=== PATIENT | female | born 1975 | race Hispanic/Latino ===

== ENCOUNTER 2016-11-15 05:56 | Day surgery (SDC) | payer SELFPAY ==
[~2016-11-15] VITALS: Ht 157.5 cm; Wt 72.1 kg
[2016-11-15] VITALS (10 sets, daily range): BP systolic 114–140; BP diastolic 73–90; PULSE 68–85; RESP 12–17; O2SAT 98–100
[~2016-11-15 05:56] MED LIST: DOCU-41 PO; Lactated Ringer's 1,000 ML IV SCH; POLY17PO6 PO; PREN-100 PO; SERT50TA9 PO
[2016-11-15] MEDS ORDERED: Ondansetron 2 mg/mL 2 mL Inj ONE (05:57)
[2016-11-15] MEDS ORDERED: Propofol 10,000 mCg/mL 20 mL Inj ONE (05:57)
[2016-11-15] MEDS ORDERED: Dexamethasone 4 mg/mL Inj ONE (05:57)
[2016-11-15] MEDS ORDERED: MetoCLOpramide 5 mg/mL 2 mL Inj ONE (05:57)
[2016-11-15] MEDS ORDERED: fentaNYL-PF 50 mCg/mL 2 mL Inj ONE ×2 (05:57→10:20)
[2016-11-15] MEDS ORDERED: CeFAZolin Inj 2 gm / 50mL D5W IV ONE ×2 (06:05→10:48)
[2016-11-15] MEDS ORDERED: Lactated Ringer's 1,000 ML IV ONE (07:00)
--- NOTE | 2016-11-15 07:54 | PCM.HPANE ---
Patient Data Surgeon Admitting Provider: Attending Provider:Momo Mcguire MD Primary Care Physician:Dex Rivas MD Other Provider:Eri Wallaceingham Anesthesia Reason for Visit Right Thyroid Mass Ht/WT & BMI Height (Feet): 5 Height (Inches): 2.00 Weight (Kilograms): 72.120 Body Mass Index 29.00 Allergies Coded Allergies: No Known Allergies (Verified , 09/29/15) Past Anesthesia History Anesthesia History: Denies:: Abnormal Airway, Anesthesia Reactions, Difficult Intubation Diabetes History Hx Diabetes?: No MRSA MRSA: No Medications Home Meds Incl Beta Laxmi: No Discontinued Reported Medications Sertraline HCl (Sertraline)50 Mg Klpxvn60 Mg PO DAILY 30 Days Ref 0 11/12/16 Vits #90/Iron Fum/FA ( Formula Tablet)1 Each Tablet1 Each PO DAILY 11/12/16 Polyethylene Glycol 3350 (Miralax)17 Gm Powd.pack17 Gm PO DAILY 11/12/16 Docusate Sodium (Colace)100 Mg Nvbfohj315 Mg PO BID PRN For Constipation Ref 0 11/12/16 Loratadine (Claritin)10 Mg Gvjhzsg52 Mg PO DAILY Ref 0 09/29/15 Vit W-Ca,Fe,FA(<1 mg) ( Vitamins)1 Each Tablet1 Each PO DAILY 09/29/15 Discontinued Scripts oxyCODONE-Acetaminophen 5-325 mg 1 Each Tablet1-2 Tab PO Q4H PRN For Pain #30 TABLET Prov:Wilfredo Dumas DO 09/29/15 Ibuprofen 600 Mg Tazrrl112 Mg PO Q6H PRN For Mild Pain #90 TABLET Prov:Wilfredo Dumas DO 09/29/15 Docusate Sodium (Colace)100 Mg Zxcddyi612 Mg PO DAILY PRN For Constipation #90 CAPSULE Prov:Wilfredo Dumas DO 09/29/15 History History of ENT Problems?: No HEENT History: Denies:: Abnormal Airway Cataracts Difficult Intubation Dysphagia Glaucoma Hearing Problem Sinus Problem TMJ Denture Type: None Teeth Condition: Within Normal Limits Hx of Heart Problems?: No Cardiovascular History: Denies:: AICD Abdominal Aortic Aneurism Atrial Fibrillation Cardiac Surgery Chest Pain Congestive Heart Failure Coronary Artery Disease Edema Heart Murmur Hypertension Irregular Heartbeat Pacemaker Peripheral Vascular Rheumatic Fever Thrombophlebitis Valvular Heart Disease Hx of Respiratory Problem?: No Respiratory History: Denies:: Asthma COPD Chest Surgery Cough Dyspnea Emphysema Hemoptysis Oxygen Administration Pneumonia Pulmonary Embolism Tuberculosis Use of C-PAP Machine Use of Inhalers / NEBS Hx Neurologic Problems?: No Neurological History: Denies:: Alzheimer's Disease CVA Dementia Dizziness Headaches Multiple Sclerosis Parkinson's Disease Peripheral Neuropathy Seizures TIA Hx of GI Problems?: No Gastrointestinal History: Denies:: Cirrhosis Diverticulitis Gall Bladder Disease Gastroesphageal Reflux Gastrointestinal Bleeding Heartburn Hepatitis Hiatal Hernia Liver Disease Rectal Bleeding Hx of Problems?: No Genitourinary History: Denies:: HX of Hemodialysis Kidney Stones Urinary Tract Infection Female Hx: Denies:: Currently (tubal) Endometriosis Pelvic Inflammatory Problems with Breasts? Skin History: Denies:: History Skin Disorders? Pressure Ulcers Hx Musculoskeletal Problems?: No Musculoskeletal History: Denies:: Back Injury Degenerative Joint Fibromyalgia Joint Replacement Musculoskeletal Trauma Myasthenia Gravis Osteoarthritis Rheumatoid Arthritis Systemic Lupus Hx of Psycho/Social Problems?: No Psycho Social History: Denies:: Anxiety Bipolar Disorder Hx Depression Suicide Attempt Hx Surgeries?: Yes (tubal) Hx Any Other Health Problems?: Yes Other History: Positive for:: Thyroid Disease (current admission problem, right thyroid mass) Denies:: Cancer Endocrine Disease Hospitalization History Blood Transfusions: Denies:: Accept Blood Products? Blood Transfuse Reaction Blood Transfusions Hx Diabetes: No Hx Alcohol Use: NoHx Substance Use: No Smoking Status: Never Smoker Have You Smoked inLast 12 mo: No Stop/Bang S-Snoring: Do You Snore Loudly: No T-Tired: feel tired, fatigued: Yes O-Obsered: Observed not breath: No P-Blood Pressure: treated: No B- Body Mass Index > 35 kg/m2: No A- Age over 50: No N- Neck Large Circumference: No G- Gender Male: No SATINDER Total Score: 1 Risk Assessment Category Category 1A: Patient has history of documented sleep apnea, and HAS NOT received any narcotic, sedative or anesthesia administration during this stay. Category 1B: Patient has history of documented sleep apnea, and HAS received any narcotic , sedative or anesthesia administration during this stay Category 2: Patient has SUSPECTED Obstructive Sleep Apnea, and HAS received any narcotic , sedative or anesthesia administration during this stay. Category 3: Patient has SUSPECTED Obstructive Sleep Apnea and HAS NOT received narcotic, sedative or anesthesia administration during this stay. Category 4: Outpatient in Procedural Areas with known sleep apnea or who screen positive for High Risk via the STOP/BANG questionnaire. Exam Exam Vital Signs Vital Signs Date Time Temp Pulse Resp B/P Pulse Ox O2 Delivery O2 Flow Rate FiO2 11/15/16 06:23 36.4 68 17 123/74 99 Room Air General Appearance: Alert, Oriented X3, Cooperative, No Acute Distress HEENT/AIRWAY: MP 1 Lungs: Clear to Auscultation Heart: Exam Unremarkable Meds/Labs/Diagnostics Admission Meds Current Medications Lactated Ringer's (Lr) 1,000 ml @ ud STK-MED ONCE IV Last administered on 11/15t 07:00; Start 11/15/16 at 07:00; Stop 11/15/16 at 07:01; Status DC Plan Impression Patient chart reviewed, patient interviewed and anesthestic plan with risks, benefits, and alternatives discussed, and informed consent obtained. ASA Physical Status: ASA1 Normal Healthy Anesthetic Plan: GA Bene/Risks/Altern/Consents: Yes HP Complete Prior to Induction: Yes Avelino Herrera MD Nov 15, 2016 07:54
[2016-11-15] MEDS ORDERED: Bupivacaine-MPF 0.25%/EPI 30 mL Inj INJ ONE (08:46)
[2016-11-15] MEDS ORDERED: Lactated Ringer's 500 ML IV PRN (10:31)
[2016-11-15] MEDS ORDERED: Lactated Ringer's 1,000 ML IV SCH (10:31)
--- NOTE | 2016-11-15 10:32 | PCM.ANEP1 ---
Post Anesthesia Phase 1 PACU Phase 1 Assessment Vital Signs Vital Signs Date Time Temp Pulse Resp B/P Pulse Ox O2 Delivery O2 Flow Rate FiO2 11/15/16 10:20 73 16 140/82 98 Room Air 11/15/16 10:15 74 15 135/86 100 Simple Mask 10 11/15/16 10:10 72 13 134/76 100 Simple Mask 10 11/15/16 10:05 36.9 75 15 114/90 100 Simple Mask 10 11/15/16 06:23 36.4 68 17 123/74 99 Room Air Anesthetic Administered: GA Level of Alertness: Sleepy, easy to arouse ESTRADA's with Equal Strength: Yes Pain: No Nausea or Vomiting: No Cardiovascular Function and Hy: Yes Oxygen Delivery: Room Air Lungs: Clear to Auscultation Complications: No Avelino Herrera MD Nov 15, 2016 10:32
[2016-11-15] MEDS ORDERED: fentaNYL-PF 50 mCg/mL 2 mL Inj IVPUSH PRN (10:35)
[2016-11-15] MEDS ORDERED: Phenylephrine 10,000 mCg/mL Inj IVPUSH PRN (10:35)
[2016-11-15] MEDS ORDERED: MetoCLOpramide 5 mg/mL 2 mL Inj IVPUSH PRN (10:35)
[2016-11-15] MEDS ORDERED: Ondansetron 2 mg/mL 2 mL Inj IVPUSH PRN (10:35)
[2016-11-15] MEDS ORDERED: HYDROmorphone 1 mg/mL Inj IVPUSH PRN (10:35)
[2016-11-15] MEDS ORDERED: Dexamethasone 4 mg/mL Inj IVPUSH PRN (10:35)
[2016-11-15] MEDS ORDERED: EPHEDrine Sulfate 50 mg/mL Inj IVPUSH PRN (10:35)
--- NOTE | 2016-11-15 11:00 | OP ---
[address] [address] OPERATIVE REPORT PATIENT: BOB MILLER : 1975 MR#: [id number] ADMIT: 11/15/2016 JOB ID: [id number] DATE OF SURGERY: 11/15/2016 ANESTHESIA: General. PREOPERATIVE DIAGNOSIS(ES): Symptomatic right thyroid nodule. POSTOPERATIVE DIAGNOSIS(ES): Symptomatic right thyroid nodule. OPERATIVE PROCEDURE: Right thyroid lobectomy. SURGEON: Momo Mcguire MD. SANDWICH ARTIST: Conrad Zhu MD (the digital assistant was required for the safe and timely completion of the case) and Reji Scanlon PA-C. COMPLICATIONS: None. ESTIMATED BLOOD LOSS: Less than 2 mL. CONDITION: Satisfactory. SPECIMEN: Right thyroid lobe. FINDINGS: There was an obvious firm nodule within the right thyroid lobe. Right thyroid lobectomy was performed. The right recurrent laryngeal nerve was identified and preserved. The right inferior and superior parathyroid glands were also identified and left in situ. INDICATION/SIGNIFICANT HISTORY: The patient is a 41-year-old female who noticed a right thyroid lump about six weeks ago. She believes it has been growing in size. She found it tender and uncomfortable, and believed it may be affecting her voice. An ultrasound was obtained which demonstrated a 2.8 x 2.4 x 3 cm inferior pole nodule. There were also a couple of subcentimeter nodules in the left thyroid. TSH was normal. She was referred to me. I recommended FNA. However, because it was symptomatic I also offered upfront right thyroid lobectomy. She elected to proceed with surgery. OPERATIVE TECHNIQUE: The patient was taken the operating room and placed in a supine position. General anesthesia was administered. The neck was prepped and draped in a standard surgical fashion. A procedure pause was performed. I began with a transverse cervical incision in the natural skin crease. Dissection was carried down through skin and subcutaneous tissue. A local anesthetic had been injected. Superior and inferior subplatysmal flaps were then raised. The right strap muscles were then sequentially elevated. The thyroid was dissected off the carotid sheath. I then turned my attention to the isthmus. I created a small retrothyroid window over the trachea and transected the isthmus using the LigaSure device. I then turned my attention to the superior pole. The vessels were sequentially taken with the LigaSure and then, I mobilized the inferior pole in a similar fashion. While mobilizing the inferior pole, the inferior parathyroid was encountered and left in situ. I then began to work at the lateral aspect of the thyroid. The right recurrent nerve was identified. This was gently teased off the thyroid, and the thyroid completely removed leaving no tissue behind. The superior parathyroid had been encountered during that maneuver. This was also left in place. The specimen was handed off. The nerve was inspected and looked fine. The inferior and superior parathyroid glands also looked fine. Valsalva was performed by Anesthesia with no bleeding. The strap muscles were reapproximated using running 3-0 Vicryl. The platysma was closed with interrupted 3-0 Vicryl. Skin was closed using 4-0 Monocryl. Dermabond was applied. The entire procedure was well tolerated without complication.
[2016-11-15] MEDS: oxyCODONE-Acetamin 5-325 mg Tablet PO PRN ×2 (11:23→12:30)
--- NOTE | 2016-11-19 15:10 | PATH ---
SURGICAL PATHOLOGY Attending Physician:Momo Mcguire MD CASE STATUS: Signed Out PATIENT NAME: BOB MILLER PID: [id number] : 1975 DATE COLLECTED:11/15/2016 15:38 SPECIMEN: Thyroid, Lobectomy CLINICAL HISTORY: SYMPTOMATIC RIGHT THYROID MASS 1. RIGHT THYROID FINAL DIAGNOSIS: 1.RIGHT LOBE OF THYROID GLAND: MULTIPLE HYPERPLASTIC NODULES WITH ONE LARGE FOLLICULAR COLLOID CYST, CHRONICALLY INFLAMED. NEGATIVE FOR MALIGNANCY AND SIGNIFICANT ATYPIA. ICD10 code E04.1 GROSS DESCRIPTION: The specimen is received in formalin, labeled with the patient's name, sublabeled as right thyroid and consists of a thyroid gland right lobe (13.5 g, 4.8 by 3.5 x 2.5 cm). The capsule is red-brown smooth and shiny. The parenchyma is dark red-brown with a glassy cut surface and contains multiple vasquez-white solid firm translucent nodules (0.1 x 0.1 x 0.1 cm-1.7 x 1.5 x 1.5 cm) located predominantly in the inferior half. The nodules are less than 0.1 cm from the anterior and posterior capsular surfaces and 1.2 cm from the medial resection margin. The largest nodule, which involves the inferior pole, is cystic and contains multiple fragments of orange translucent gelatinous rubbery material. Ink code: purple-anterior; yellow-posterior; green-medial. Section code: (A) superior pole, perpendicularly sectioned, entirely submitted; (B-F) right lobe, serially sectioned and submitted SI, community health representative; (G) inferior pole, perpendicularly sectioned, entirely submitted. 11/17/16 JM MICRO DESCRIPTION: See diagnosis. ICD-9 CODES: CPT CODES: 1: 72515 Electronically Signed Out Cy Treadwell MD [facility] Pathology [facility] [address], [place] [address] Technical component performed at [facility], [facility] [address], [place], [address]
== END 2016-11-15 23:59 | disposition home or self-care (01) ==
LOC: SAS 05:56
PROVIDERS: ATTEND General Practice
DX: E04.1 Nontoxic single thyroid nodule (principal)
CPT/HCPCS: 60210; J1100; J2405; J2765; J3010; J7120